=== PATIENT | female | born 1980 | race Caucasian/White ===

== ENCOUNTER → 2016-12-03 | Outpatient (CLI) | payer OTHER ==
--- NOTE | 2016-12-03 09:53 | US ---
December 03, [address] Alexis Moore, Thank you for requesting consultation and a follow up ultrasound for your patient, Mrs. Efe angeles. As you know, Ruthann is a 36 year old G 1, P 0 . Her due date is 01/19/17 by IVF dating. Her cur rent gestational age based on this dating is is 33 weeks 2 days. She is seen today for a follow up a ssessment of growth. She had IVF with a donor egg (age 26). Her screening echocardiogram was normal. ULTRASOUND Number of fetuses: 1 Placental location: Anterior presentation: Cephalic Heart Rate: 134 bpm Cervix: Not visualized secondary to early gestational age and shadowing Maximum Vertical Pocket: 3.5 cm Measurements: Biparietal diameter: 87 mm 35 weeks, 0 days Head circumference: 311 mm 34 weeks, 6 days Abdominal circumference: 291 mm 33 weeks, 1 days Femur length: 65 mm 33 weeks, 5 days Humerus length: 55 mm 32 weeks, 1 days Transcerebellar diameter: Not well-visualized Average age by ultrasound: 34 weeks, 2 days Estimated weight: 2234 gm weight percentile: 52 % ANATOMY anatomy was previously assessed. Today the following structures were visualized and appeared n ormal: Four-chamber view of the heart, right ventricular outflow tract, stomach, bilateral kid neys, bladder, and lateral ventricle. IMPRESSION: 1. Intrauterine at 33 weeks, 2 days; LESLIE of 01/19/17. 2. growth is appropriate size for dates. 3. anatomy was previously assessed and today's ultrasound continues to provide reassurance of normal appearing anatomy. 4. Normal amniotic fluid volume 5. Advanced maternal age 6. IVF with donor egg; age 26 RECOMMENDATIONS: I was pleased to review today's ultrasound with your patient. I reassured her that growth is normal at the 52 %ile for this gestational age. The amniotic fluid volume is normal. We performed a review of the anatomy which was limited by gestational age and acoustic shadowing, but no overt abnor malities were noted. Future ultrasound and consultation is available at your discretion. Thank you for allowing us the opportunity to evaluate your patient. Should you have any further ques tions or concerns please do not hesitate to contact me. Approximately 15 minutes were spent with the patient and 10 minutes were spent in face to face consu ltation. Giana Shelton MD Laborer Driver Maternal Medicine Diagnosis Department of Obstetrics & Gynecology [facility]
--- NOTE | 2016-12-03 10:25 | US ---
OB Sonogram History: Advanced maternal age, follow-up growth, LESLIE January 19, 2017, 33 weeks 2 days Impression: August 29, 2016 Findings: The fetus is in vertex presentation. The placenta is anterior. There is no previa. The visu alized intracranial contents and face look normal. The heart is 4 chambered and has a rat e of 1 34 bpm. Fluid is identified in the stomach and urinary bladder. The renal re gion looks normal. There is no ascites. BPD = 87 mm = 35 weeks 0 days Head circumference = 311 mm = 34 weeks 6 days Abdominal circumference = 291 mm = 33 weeks 1 day Femur length = 65 mm = 33 weeks 5 days Humeral length = 55 mm = 32 weeks 1 day Cisterna magna = 8 mm Estimated weight = 2234 g = 52%ile Gestational age by ultrasound = 34 weeks 2 days Ultrasound LESLIE = January 12, 2017 Impression: Size consistent with dates. There is been normal interval growth. This report should be read in conjunction with a consultation by Dr. Giana Shelton.
== END ==
LOC: FIMAGING 08:58
PROVIDERS: ATTEND Obstetrics & Gynecology
DX: O09.513 Supervision of elderly primigravida, third trimester (principal); O09.813 Supervision of pregnancy resulting from assisted reproductive technology, third trimester; Z3A.33 33 weeks gestation of pregnancy

== ENCOUNTER → 2016-12-23 | Outpatient (CLI) | payer OTHER | LOC: FIMAGING 10:48 | PROVIDERS: ATTEND Obstetrics & Gynecology | DX: O09.523 Supervision of elderly multigravida, third trimester (principal); Z3A.30 30 weeks gestation of pregnancy ==

== ENCOUNTER → 2017-01-13 | Outpatient (CLI) | payer OTHER | LOC: FIMAGING 11:13 | PROVIDERS: ATTEND Obstetrics & Gynecology | DX: O36.5930 Maternal care for other known or suspected poor fetal growth, third trimester, not applicable or unspecified (principal); Z3A.39 39 weeks gestation of pregnancy ==

== ENCOUNTER 2017-01-20 11:32 | Inpatient (IN) | payer OTHER ==
--- NOTE | 2017-01-20 11:35 | GHP ---
[f rep st] PREOP HISTORY AND PHYSICAL CHIEF COMPLAINT: Decreased movement at 40 and 1/7 weeks. HISTORY OF PRESENT ILLNESS: The patient is a 36-year-old, G1, P0, female who is at 40 and 1/7 weeks' gestation and she is dated by IVF dating, who presented with complaints of decreased movement today. She does feel that she is probably still getting her kick counts in but the movements are more subtle. On exam, she had a normal NST of 130s with moderate variability and accelerations, however, her JENNA was 4 cm. As the patient's cervix was favorable and she was having decreased movement at term, I recommended proceeding to labor and delivery for induction of labor which the patient agrees to. PAST MEDICAL HISTORY: Significant for premature ovarian failure, history of thyroid disease. PAST SURGICAL HISTORY: Negative. FAMILY HISTORY: Noncontributory. MEDICATIONS: Include vitamins with DHA, Synthroid 75 mcg, Unisom tablet as needed, and aspirin 81 mg daily. CLAIMS ADJUSTER SUPERVISOR HISTORY: Negative. REVIEW OF SYSTEMS: Significant for decreased movement. No loss of fluid , vaginal bleeding, or contractions. PHYSICAL EXAMINATION: VITAL SIGNS: Her blood pressure is 122/78. GENERAL: She is in no apparent distress. ABDOMEN: Gravid and nontender. Estimated weight is 7 pounds. Her cervix is 3 cm dilated, 90% effaced, 0 station. As noted, her NST was 130s with moderate variability and accels. Her JENNA was 4 cm. Fetus was confirmed vertex. Blood type is significant for A positive. Antibody screen negative. Rubella immune. RPR nonreactive. Hepatitis B surface antigen negative. HIV negative. Gonorrhea and chlamydia negative. 1- hour Glucola was elevated at 145, her 3-hour was normal at 70 for fasting, 90 for 1 hour, 82 for 2 hour and 66 for 3 hour and her group B strep is negative. ASSESSMENT AND PLAN: This is a 36-year-old, G1, P0, female who has oligohydramnios at term with decreased movement. Recommend undergoing induction of labor to prevent stillbirth which the patient agrees to. We will plan on Pitocin and rupture of membranes to induce labor. /[id number]/MODL MTDD
[2017-01-20] MEDS ORDERED: OXYTOCIN/RINGERS LACTATE 1,000 ML IV PRN (12:22)
[2017-01-20] MEDS ORDERED: OLIVE OIL 118 ML BTL MISC PRN (12:22)
[2017-01-20] MEDS ORDERED: TERBUTALINE SULFATE 1 MG/ML VIAL IV PRN (12:22)
[2017-01-20] MEDS ORDERED: LR 500 ML IV PRN (12:22)
[2017-01-20] MEDS ORDERED: LIDOCAINE 1% 30 ML SDV SC PRN (12:22)
[2017-01-20] MEDS ORDERED: EPSOM SALT 454 GM TP PRN (12:22)
[2017-01-20] MEDS ORDERED: LR 1,000 ML IV PRN (12:22)
[2017-01-20] MEDS ORDERED: OXYTOCIN/RINGERS LACTATE 500 ML IV SCH (12:30)
[2017-01-20 12:37] LABS: % IMMATURE GRANULYOCYTES 0.4 % (0.0-1.1); ABSOLUTE IMMATURE GRANULOCYTES 0.03 10^3/uL (0.00-0.10); ADD DIFF? NO; ADD MORPH? NO; ADD SCAN? NO; ATYPICAL LYMPHOCYTE FLAG 0 (0-99); FRAGMENT RBC FLAG 0 (0-99); HEMATOCRIT 38.9 % (38.0-47.0); HEMOGLOBIN 13.9 g/dL (12.6-16.3); LEFT SHIFT FLG 0 (0-99); LIPEMIA HEMOLYSIS FLAG 90 (0-99); MEAN CELL HEMOGLOBIN 32.1 pg (27.9-34.1); MEAN CELL HEMOGLOBIN CONCENTR. 35.7 g/dL (32.4-36.7); MEAN CELL VOLUME 89.8 fL (81.5-99.8); MEAN PLATELET VOLUME 9.9 fL (8.7-11.7); PLATELET CLUMPS FLAG 0 (0-99); PLATELET COUNT 187 10^3/uL (150-400); RED BLOOD CELL COUNT 4.33 10^6/uL (4.18-5.33); RED CELL DISTRIBUTION WIDTH 12.2 % (11.5-15.2)
--- NOTE | 2017-01-20 13:50 | OBPROG ---
OBG Progress Note Assessment/Plan: Assessment: 36 yo @ 40 1/7, IOL for oligohydramnios, decreased meconium. Plan: 01/20/17 13:48 GBS neg. FWB reassuring. Discussed meconium stained fluid. Increase pitocin to adequacy. Subjective: 36 yo @ 40 1/7, IOL for oligohydramnios, decreased meconium. Objective: 01/20/17 12:20 Patient ABO/Rh A POSITIVE 01/20/17 12:20 VSS - SVE Dilation (cm): 4 Effacement (%): 75 Station: 0 Current Contraction Pattern: Irregular FHR (bpm): 130 FHR Pattern Variability: Moderate FHR Category: 2 Membranes: AROM Amniotic Fluid Color: Meconium Stained-Light ICD10 Worksheet Patient Problems: Problems Problem Status Onset Decreased movement Acute Oligohydramnios antepartum Acute
[2017-01-20] MEDS ORDERED: fentaNYL 100 MCG/2 ML INJ ONE (17:43)
[2017-01-20] MEDS ORDERED: HYDROCORTISONE 0.5% CREAM TP PRN (18:00)
[2017-01-20] MEDS ORDERED: SIMETHICONE 80 MG TAB CHEW PO PRN (18:00)
[2017-01-20] MEDS ORDERED: fentaNYL 100 MCG/2 ML INJ IVP ONE (18:01)
[2017-01-20] MEDS ORDERED: POLYETHYLENE GLYCOL 3350 17 GM PKT PO PRN (18:01)
[2017-01-20] MEDS ORDERED: LACTULOSE 20 GM/30 ML UDCUP PO PRN (18:01)
[2017-01-20] MEDS ORDERED: MAGNESIUM HYDROXIDE 30 ML UDCUP PO PRN (18:01)
[2017-01-20] MEDS ORDERED: BISACODYL 10 MG SUPP PR PRN (18:01)
--- NOTE | 2017-01-20 18:06 | OBPROC ---
- Labor and Delivery Onset of Contractions Date: 01/20/17 Onset of Contractions Time: 13:30 Onset of Contractions Type: Induced Rupture of Membranes Date: 01/20/17 Rupture of Membranes Time: 13:30 Rupture of Membranes Type: Artificial Amniotic Fluid Color: Meconium Stained-Light Dilation Complete Time: 17:00 Delivery Type: Spontaneous Placenta Delivery Date: 01/20/17 Episiotomy/Laceration: 4th Degree Repair: 2-0, 3-0, 4-0, Vicryl EBL: 300 ml - Medications Labor Augmentation/Induction Meds Used: Pitocin Labor Augmentation/Induction Indication: Other (Specify) (oligohydramnios) - Info A Delivery Date: 01/20/17 Delivery Time: 17:25 Sex of Infant: Female Score (1 Min): 8 Score (5 Min): 9
[2017-01-20] MEDS: IBUPROFEN 600 MG TAB PO PRN ×2 (18:08→23:55)
[2017-01-20] MEDS: SENNOSIDES/DOCUSATE SODIUM TAB PO SCH (21:23)
[2017-01-21] MEDS: IBUPROFEN 600 MG TAB PO PRN ×3 (06:00→18:34)
[2017-01-21] MEDS: SENNOSIDES/DOCUSATE SODIUM TAB PO SCH ×2 (07:41→19:32)
--- NOTE | 2017-01-21 07:49 | SOAPPROG ---
SOAP Progress Note Assessment/Plan: Assessment: 36 y.o. female s/p PPD #1. Recovering well with good pain control. . Plan: Routine orders. consult. Anticipate discharge tomorrow. 01/21/17 07:47 Subjective: Reports feeling well with good pain control and minimal vaginal bleeding. . Discussed bowel management due to 4th degree laceration. Eating and drinking well without n/v. Has been out of bed and ambulating without vertigo. Appropriate mood with good support system. Objective: Vital Signs Temp Pulse Resp BP Pulse Ox 36.8 C 66 17 124/80 H 93 01/20/17 22:53 01/20/17 22:53 01/20/17 22:53 01/20/17 22:53 01/20/17 22:53 Laboratory Results 01/20/17 12:20 01/20/17 01/21/17 01/22/17 05:59 05:59 05:59 Intake Total 1500 Output Total 300 Balance 1200 - Time Spent With Patient Time Spent With Patient: 20 minutes - Pending Discharge Pending Discharge Within 24 Hours: Yes Pending Discharge Date: 01/22/17 Pending Discharge Time: 11:00 Physical Exam - Physical Exam General Appearance: WD/WN, alert, no apparent distress EENT: normal ENT inspection Neck: non-tender, full range of motion, normal inspection Respiratory: lungs clear, normal breath sounds Cardiac/Chest: regular rate, rhythm Abdomen: non-tender, soft Pelvic Exam: normal external exam Rectal: deferred Back: Normal inspection Skin: normal color, warm/dry Lymphatic: no adenopathy Extremities: normal range of motion, non-tender Neuro/Psych: alert, normal mood/affect, oriented x 3 ICD10 Worksheet Patient Problems: Problems Problem Status Onset Decreased movement Acute Oligohydramnios antepartum Acute
[2017-01-21 08:01] VITALS: O2SAT 94
[2017-01-21] MEDS: LEVOTHYROXINE 75 MCG TAB PO SCH (08:34)
[2017-01-21] MEDS: HYDROCODONE/APAP 5/325 TAB PO PRN ×3 (09:22→13:41)
[2017-01-21 19:38] VITALS: RESP 16
[2017-01-22] MEDS: IBUPROFEN 600 MG TAB PO PRN ×3 (00:01→12:08)
[2017-01-22] MEDS: LEVOTHYROXINE 75 MCG TAB PO SCH (05:45)
[2017-01-22 08:10] VITALS: BP 121/85; PULSE 73; TEMP 98.2
--- NOTE | 2017-01-22 09:31 | OBGCSDC ---
General Delivery Information - General Info : 1 Para: 1 Labs: Patient ABO/Rh A POSITIVE 01/20/17 12:20 Hct 38.9 % (38.0-47.0) 01/20/17 12:20 - Info Infant A Sex of : Female Score (1 Min): 8 Score (5 Min): 9 Vaginal - Diagnosis Labor: Induced Rupture of Membranes Type: Artificial Amniotic Fluid Color: Meconium Stained-Light Laceration: 4th Degree Repair: 2-0, 3-0, 4-0, Vicryl - Operations/Procedures Delivery Type: Spontaneous - Hospital Course : Routine post- care. Stool softener. Instructions given for perineal care. going well. - Delivery EBL: 300 ml Discharge Information - Discharge Information Discharge Medications: Ibuprofen, Vicodin, Other (Specify) (Miralax) Complications: None Condition: Good Instruction/Follow Up: Two Weeks Discharge Physician/CNM: Sarai Boston Discharge Date: 01/22/17 Dictated: No
[2017-01-22] MEDS: SENNOSIDES/DOCUSATE SODIUM TAB PO SCH (10:18)
== END 2017-01-22 12:40 | disposition home or self-care (01) | DRG 775 ==
LOC: FLD 11:32 → FOB 20:37
PROVIDERS: ADMIT Obstetrics & Gynecology; ATTEND Obstetrics & Gynecology
PROC: 3E033VJ Introduction of Other Hormone into Peripheral Vein, Percutaneous Approach (ICD-10-PCS; principal; 2017-01-20)
PROC: 10907ZC Drainage of Amniotic Fluid, Therapeutic from Products of Conception, Via Natural or Artificial Opening (ICD-10-PCS; principal; 2017-01-20)
PROC: 10E0XZZ Delivery of Products of Conception, External Approach (ICD-10-PCS; principal; 2017-01-20)
PROC: 0DQP0ZZ Repair Rectum, Open Approach (ICD-10-PCS; principal; 2017-01-20)
DX: O76 Abnormality in fetal heart rate and rhythm complicating labor and delivery (principal); O41.03X0 Oligohydramnios, third trimester, not applicable or unspecified; O70.3 Fourth degree perineal laceration during delivery; O99.284 Endocrine, nutritional and metabolic diseases complicating childbirth; E03.9 Hypothyroidism, unspecified; O69.82X0 Labor and delivery complicated by other cord entanglement, without compression, not applicable or unspecified; O48.0 Post-term pregnancy; O77.0 Labor and delivery complicated by meconium in amniotic fluid; O09.813 Supervision of pregnancy resulting from assisted reproductive technology, third trimester; Z3A.40 40 weeks gestation of pregnancy; Z37.0 Single live birth
CPT/HCPCS: J2590; J3010

== ENCOUNTER 2017-03-12 13:35 | Emergency (ER) | payer OTHER ==
--- NOTE | 2017-03-12 14:36 | EDPHY ---
H & P Time Seen by Provider: 03/12/17 13:51 HPI/ROS: CHIEF COMPLAINT: Left foot injury HISTORY OF PRESENT ILLNESS: 36-year-old female presents to the emergency department with injury to her left foot. The patient states that she was at home and was running down the stairs and then somehow twisted her left foot. She complains of isolated pain to the left foot. She denies hitting her head or losing consciousness. ROS: Denies numbness or tingling in her toes, pain in her left ankle or knee. Denies symptoms in the right lower extremity. Past Medical/Surgical History: 7 weeks Social History: Smoking Status: Never smoked Physical Exam: On examination patient has swelling to the dorsal lateral aspect of her left foot overlying 5th metatarsal. She has diffuse pain with palpation along the 5th metatarsal. The remainder of the left foot is nontender. She has full dorsiflexion. She is able to fully plantar flex. Her left ankle appears stable. No abrasions or puncture wounds. Nontender to palpate the left ankle or calf. Straight leg raise without difficulty. Normal sensation to light touch with normal 2 point discrimination. Strong dorsalis pedis pulse on the dorsal aspect of the left foot. Constitutional: Initial Vital Signs Temperature (C) 36.5 C 03/12/17 13:37 Heart Rate 72 03/12/17 13:37 Respiratory Rate 16 03/12/17 13:37 Blood Pressure 106/72 03/12/17 13:37 O2 Sat (%) 96 03/12/17 13:37 O2 Delivery Mode Room Air Allergies/Adverse Reactions: No Known Allergies Allergy (Unverified 11/03/15 16:01) Home Medications: Medication Instructions Recorded Kym Bass 11/03/15 Hydrocodone/APAP 5/325 [[place] 1 - 2 tab PO Q4HRS PRN #20 tab 01/22/17 5/325 (*)] Ibuprofen [Motrin (*)] 600 mg PO Q6HRS PRN #60 tab 01/22/17 Polyethylene Glycol 3350 [Miralax 17 gm PO DAILY PRN #30 pkt 01/22/17 17 gm (*)] MDM/Departure - MDM Diagnostics: X-rays of the left foot reveal comminuted mildly displaced fracture of the left 5th metatarsal shaft. Radiology interpretation to follow Imaging: I viewed and interpreted images myself Procedures: Patient was placed posterior Ortho Glass splint. She was given crutches. This was examined post application in good placement with normal DISTRIBUTED GENERATION PROJECT MANAGER. ED Course/Re-evaluation: 36-year-old female presents to the emergency department with left foot injury. X -rays reveal left 5th metatarsal fracture. The patient was placed in a splint and given crutches and will be nonweightbearing until follow-up with orthopedic surgery next week. Ibuprofen 600 mg every 8 hours as needed for pain. She was encouraged to ice and elevate as much as possible to help relieve swelling. - Depart Disposition: Home, Routine, Self-Care Clinical Impression: Fracture of fifth metatarsal bone of left foot Qualifiers: Encounter type: initial encounter Fracture type: closed Fracture alignment: displaced Qualified Code(s): S92.352A - Displaced fracture of fifth metatarsal bone, left foot, initial encounter for closed fracture Condition: Good Instructions: Foot Fracture in Adults (ED) Additional Instructions: Ibuprofen 600 mg every 8 hours as needed for pain. Ice and elevate to help relieve swelling. Do not walk on your left foot until cleared by Orthopedic surgery next week. Referrals: Angel aPtel MD [Medical Doctor] - 2-3 days without fail (Orthopedic surgeon on-call)
[2017-03-12 14:53] VITALS: BP 128/79; PULSE 80; RESP 14; TEMP 98.4; O2SAT 94
== END 2017-03-12 14:52 | disposition home or self-care (01) ==
DX: S92.352A Displaced fracture of fifth metatarsal bone, left foot, initial encounter for closed fracture (principal); X58.XXXA Exposure to other specified factors, initial encounter; Y92.009 Unspecified place in unspecified non-institutional (private) residence as the place of occurrence of the external cause; Y93.02 Activity, running